=== PATIENT | female | born 1970 | race Caucasian/White ===

== ENCOUNTER 2023-09-14 07:40 | Outpatient (CLI) | payer OTHER, SELFPAY | END 2023-09-14 07:41 | disposition home or self-care (01) | LOC: NFLDREF 09-20 15:35 | PROVIDERS: PCP Physician Assistant Medical; Referring Provider Physician Assistant Medical; Visit Provider Physician Assistant Medical | DX: I10 Essential (primary) hypertension (principal); Z13.6 Encounter for screening for cardiovascular disorders; Z13.228 Encounter for screening for other metabolic disorders | CPT/HCPCS: 80053; 80061; 84443 ==

== ENCOUNTER 2023-10-05 13:29 | Outpatient (CLI) | payer OTHER, SELFPAY | END 2023-10-05 13:30 | disposition home or self-care (01) | LOC: RAD 13:29 | PROVIDERS: PCP Physician Assistant Medical; Visit Provider Family Medicine | DX: R01.1 Cardiac murmur, unspecified (principal); I35.1 Nonrheumatic aortic (valve) insufficiency | CPT/HCPCS: 93306 ==

== ENCOUNTER 2025-02-09 07:45 | Outpatient (CLI) | payer OTHER, SELFPAY ==
[2025-02-11 20:22] LABS: HPV Source Cervical/Vag; HPV, High Risk by TMA Not Detected
== END 2025-02-09 07:46 | disposition home or self-care (01) ==
PROVIDERS: PCP Physician Assistant Medical; Visit Provider Physician Assistant Medical
DX: Z00.00 Encounter for general adult medical examination without abnormal findings (principal); I10 Essential (primary) hypertension; F41.9 Anxiety disorder, unspecified; Z11.51 Encounter for screening for human papillomavirus (HPV); Z12.4 Encounter for screening for malignant neoplasm of cervix
CPT/HCPCS: 80053; 80061; 84443; 87624; 87625; 88141; 88142